=== PATIENT | male | born 1940 | race Caucasian/White ===

== ENCOUNTER 2016-10-19 13:41 | Observation (INO) | payer MEDICARE, OTHER ==
[~2016-10-19] VITALS: Ht 182.9 cm; Wt 102.0 kg
[2016-10-19] VITALS (7 sets, daily range): BP systolic 116–143; BP diastolic 64–80; PULSE 62–76; RESP 4–20; O2SAT 97–100
[~2016-10-19 13:41] MED LIST: ASPI81TA3 PO; CYAN10008 PO; GABA300C PO; HYDR-4150 PO; INSU100I13 SUBQ; NYST1POW23 MC; POLY17PO6 PO; QUET25TA73 PO; SITA100T12 PO; SULF1TAB35 PO; TAMS0.4C98 PO; TIOT4MIS2 IH; TRAM50TA2 PO
--- NOTE | 2016-10-19 14:45 | ED.REPORT ---
HPI-Neurologic Deficit Date of Service Oct 19, 2016 ED Provider: Dale Acevedo MD Pt is a 76 y/o male w/ a hx of TIA, diabetes, HTN, hyperlipidemia, prev squamous cell carcinoma s/p radiation and resection, PVD, COPD, presenting to the ED via EMS due to stroke-like symptoms onset 04:30 this morning. After discussion with the daughter and granddaughter, the patient woke up at 04:30 this morning complaining of facial numbness and was checked by his daughter and he told her that he "didn't feel right" and was fatigued. She checked on him again at 08:30 and noticed he was complaining of left facial numbness. His granddaughter checked on him later at 12:00 and noticed left sided weakness, left facial droop, and slurred speech. 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 He also states that his left hand numbness is related to diabetic peripheral neuropathy. He denies any weakness at all, any pain. Nursing Notes Stated Complaint: LEFT SIDED WEAKNESS Chief Complaint: Neuro Symptoms/ Deficits Nursing Notes Reviewed: Yes Allergies: Coded Allergies: Penicillins (Verified Allergy, Severe, BLISTERS, 10/19/16) TAKES CEPHALEXIN X MANY DOSES silver nitrate (Verified Allergy, Severe, blisters, 10/19/16) tazobactam (Verified Allergy, Severe, BLISTERS, 10/19/16) clindamycin (Verified Allergy, Intermediate, flushed, rash, 10/19/16) vancomycin (Verified Allergy, Intermediate, Rash, flushed, 10/19/16) diphenhydramine (Verified Adverse Reaction, Mild, "he's totally mean", 10/19/16) Uncoded Allergies: BETALACTAMASEIN (Allergy, Severe, BLISTERS, 07/13/09) Scheduled Aspirin Chew (Aspirin Chew) 81 Mg Tab.chew 162 MG PO DAILY Cyanocobalamin (Vitamin B-12) (Vitamin B-12) 1,000 Mcg Tablet 1,000 MCG PO DAILY Gabapentin (Neurontin) 300 Mg Capsule 300 MG PO TID Insulin Glargine (Lantus U100 Solostar Insulin Pen) 100 Unit/1 Ml Insuln.pen 23 UNIT SUBQ BID Nystatin (Nystatin) 1 Each Powder.ea. 1 EACH MC BID Quetiapine Fumarate (Quetiapine Fumarate) 25 Mg Tablet 25 MG PO BID Sitagliptin Phos (Januvia) 100 Mg Tablet 100 MG PO DAILY Sulfamethoxazole/Trimeth 800-160 mg (Bactrim DS 800-160 mg) 1 Each Tablet 1 TABLET PO BID Tamsulosin (Flomax) 0.4 Mg Capsule 0.4 MG PO DAILY Tiotropium [place] (Spiriva Respimat) 4 Gm Mist.inhal 4 GM IH DAILY Scheduled PRN Hydrocodone/Acetaminophen ([place] 5-325 Tablet) 1 Each Tablet 0.5-1 EACH PO q24 hours PRN PRN For Pain Polyethylene Glycol 3350 (Miralax) 17 Gm/Pkt Powd.pack 17 GM PO DAILY PRN PRN For Constipation Tramadol (Tramadol) 50 Mg Tablet 50 MG PO Q4H PRN PRN For Pain General Time Seen by Provider: 14:46 Chief Complaint Other (left-sided deficits) Hx Obtained From: Patient, EMS Arrived By: Ambulance Sudden in Onset?: No Onset Occurred: 5 - 8 hours ago Symptom Duration: Since onset Severity: Current: No pain currently Severity: Maximum: No pain Similar Sx Previous: Yes Risk Factors TPA Administration/Criteria Stroke Thrombolytic Therapy : TPA Considered: Yes TPA Administered Intravenously: No, exclusion criteria NIH Stroke Scale Level of Consciousness: Alert and responsive (0) Ask Month & Age: 1 question right (1) (year incorrect) Open/Close Eyes/Hand Warehouse Record Clerk: Performs both tasks (0) Horizontal EO Movements: None (0) Visual Holcomb: Partial hemianopsia (1) (left eye) Facial Palsy: Minor paralysis (1) Right Arm Motor Drift (10s): No drift 10 sec (0) Left Arm Motor Drift (10s): No drift 10 sec (0) Right Leg Motor Drift (5s): Untestable (0) (bilat bka) Left Leg Motor Drift (5s): Untestable (0) (bilat bka) Limb Ataxia FNF/Heel-Philippe: Ataxia in 1 limb (1) (L arm, difficult to test) Sensation (Arms/Legs/Face): No sensory loss (0) Language Aphasia: No aphasia, normal (0) Dysarthria: No dysarthria, normal (0) Extinction/Inattention: No exctinct/inattent (0) NIHSS Score: 4 Time NIHSS Performed: 16:30 Past Medical History Past Medical History Notes: PCP: Dr. Kirkland Last admit 12/2014 UTI Past Medical History 1. 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 2. Chronic low back pain requiring bilateral L4-L5 facet injections and status post right C3 transforaminal injection for cervical pain. 3. History of remote closed head injury. 4. Hypertension. 5. Peripheral vascular disease. 6. Asthma/COPD 7. 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 TIA in 1999 9. Hyperlipidemia 10. 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 Depression 12. 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 Right hip surgery in 1998 2. Appendectomy 3. Tonsillectomy 4. Umbilical hernia repair 5. 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 Status post ORIF of left elbow. 6. Squamos cell carcinoma resection Family History Reviewed, not relevant Smoking History Former Smoker, Never Smoker Social History Alcohol Use: Denies alcohol use Drug Use: Denies drug use Other Social History: Good social support, Local resident Ambulatory Status Wheelchair Review of Systems Constitutional: Reports: Fatigue, Weakness - generalized Cardiovascular: Denies: Chest pain GI: Denies: Abdominal pain Neurologic: Reports: Focal weakness, Numbness, Slurred speech, Denies: Headache Complete sys rev & neg: except as marked. Physical Exam Initial Vital Signs Vital Signs (First) Date Time Temp Pulse Resp B/P Pulse Ox O2 Delivery O2 Flow Rate FiO2 10/19/16 13:55 36.5 66 14 129/70 97 Room Air 10/19/16 17:25 2 Initial VS: Reviewed, Vital signs normal ENT: Mucous membranes moist, Conjunctiva normal, No scleral icterus Abdomen / GI: Soft, Non-tender Skin: Warm, Dry, No cyanosis Psychiatric: Mood/affect normal, Behavior normal, Normal thought content General/Constitutional: Awake, Alert, No acute distress, Cooperative, Not toxic appearing Head / Eyes: Atraumatic, Normocephalic, PERRL, EOMI Respiratory / Chest: Atraumatic, No respiratory distress, No retractions, No stridor, No chest tenderness, No chest wall deformity, No crepitus Wheezing throughout Good air movement Cardiovascular: Heart rate NL, Regular rhythm, Heart sounds NL, No gallop, No murmurs, No rubs, Cap refill not delayed, Peripheral circulation NL Neurologic: Oriented X3, Speech NL, No sensory deficits See NIH stroke scale Neck: Atraumatic, Supple, No meningismus, Full range of motion, No carotid bruit Interpretation & Diagnostics Lab Results Interpretation Result Diagram: 10/19/16 1538 10/19/16 1538 Test 10/19/16 15:38 10/19/16 16:21 White Blood Count 5.3th/mm3 (3.8-10.1) Red Blood Count 4.44mil/mm3 (4.40-5.80) Hemoglobin 13.9g/dL (13.8-17.2) Hematocrit 41.4% (41.0-50.0) Mean Corpuscular Volume 93.2fL (81-100) Mean Corpuscular Hemoglobin 31.3pg (27.0-35.0) Mean Corpuscular Hemoglobin Concent 33.6% (32.0-37.0) Red Cell Distribution Width 13.4% (12.3-15.4) Platelet Count 119bil/L (150-400) Neutrophils (%) (Auto) 28.1% (40-74) Lymphocytes (%) (Auto) 47.9% (14-46) Monocytes (%) (Auto) 15.2% (4-12) Eosinophils (%) (Auto) 7.8% (0-5) Basophils (%) (Auto) 0.8% (0-3) Prothrombin Time 10.5sec (8.1-12.5) Prothromb Time International Ratio 0.98ratio Activated Partial Thromboplast Time 29.9sec (22.8-33.0) Sodium Level 140mEq/L (134-144) Potassium Level 4.2mEq/L (3.5-5.2) Chloride Level 105mEq/L (97-108) Carbon Dioxide Level 23mmol/L (18-29) Blood Urea Nitrogen 12mg/dL (8-27) Creatinine 0.63mg/dL (0.76-1.27) Estimat Glomerular Filtration Rate 132mL/min (>59) Glucose Level 82mg/dL (60-99) Calcium Level 8.7mg/dL (8.5-10.1) Total Bilirubin 0.4mg/dL (0.0-1.2) Aspartate Amino Transf (AST/SGOT) 21U/L (0-50) Alanine Aminotransferase (ALT/SGPT) 17U/L (0-44) Alkaline Phosphatase 107U/L (25-160) Troponin T < 0.010ug/L (0.0-0.011) Total Protein 6.9g/dL (6.4-8.4) Albumin 3.7g/dL (3.4-5.0) Urine Color Yellow (YELLOW) Urine Appearance Clear (CLEAR,HAZY) Urine pH 6.5 (5.0-8.0) Urine Specific [place] 1.015 (1.003-1.035) Urine Protein Negativemg/dL (NEG,TRACE) Urine Glucose (UA) Negativemg/dL (NEGATIVE) Urine Ketones Negativemg/dL (NEGATIVE) Urine Occult Blood Negative (NEGATIVE) Urine Nitrite Negative (NEGATIVE) Urine Bilirubin Negative (NEGATIVE) Urine Urobilinogen Normalmg/dL (NORMAL) Urine Leukocyte Esterase Negative (NEGATIVE) Urine RBC 0-2/hpf (0-2) Urine WBC 0-5/hpf (0-5) Urine Epithelial Cells Moderate/hpf (NONE-MOD) Urine Crystals None seen (NONE SEEN) Urine Bacteria Moderate/hpf (NONE-FEW) Urine Hyaline Casts None/lpf (NONE) Urine Granular Casts None seen (NONE SEEN) Urine Waxy Casts None seen (NONE SEEN) Urine Red Blood Cell Casts None seen (NONE SEEN) Urine White Blood Cell Casts None seen (NONE SEEN) Urine Mucus None seen (None Seen) Urine Trichomonas None seen (NONE SEEN) Urine Yeast None (NONE SEEN) Urinalysis Comment None Urine Culture Reflexed Indicated ECG Interpretation ECG Interpretation: Sinus rhythm rate 63 LAD Abnormal R wave progression Time: 15:38 Interpreted by: ED physician Normal ECG Interpretation: No acute ischemic changes X-Ray Chest Interpretation Chest Xray Interpretation: IMPRESSION: No acute disease Dictated by: Ag Dickerson M.D. on 10/19/2016 at 18:52 Approved by: Ag Dickerson M.D. on 10/19/2016 at 18:53 Interpretation / Wet Read by: Interpret - Radiologist CT Head Interpretation IMPRESSION: No acute intracranial disease process. Dictated by: Soledad Sharma MD, PhD on 10/19/2016 at 15:11 Approved by: Soledad Sharma MD, PhD on 10/19/2016 at 15:14 Study: Head CT no contrast Interpretation / Wet Read by: Interpret - Radiologist Re-Eval/Medical Decision Med Decision/Clinical Course Presented outside the window for TPA. TPA not further considered. New L facial droop, appears to be acute stroke. No bleeding on CT, otherwise stable, will admit to hospitalist Source of Hx: Old records, EMS, Family Re-Evaluation/Progress : Time of Eval: 16:25 Re-Evaluation/Progress Note: Pt rechecked. NIH stroke scale performed. No change in condition at this time. Discussed case with family who is now in the room. Informed pt of need for admission. Pt understands and agrees with plan for admission. All questions addressed. Consultation : Referral / Consult Name: Ben Patrick MD Consulted With: Hospitalist Call Returned at: 18:24 Executive Chef Assistant: Agrees with eval, Agrees with plan, Accepts admit Note: Spoke with Dr. Patrick, hospitalist, regarding pt's case. Dr. Patrick agrees with the evaluation and agrees to admit the pt. Counseled Regarding: Diagnosis, Lab results, Need for admission Discharge & Departure Impression: Primary Impression: CVA (cerebral vascular accident) CVA mechanism: unspecified Qualified Code: I63.9 - Cerebral infarction, unspecified Disposition: ADMITTED TO HOSPITAL Discharge Condition All VS Reviewed: Yes Condition: Stable Referrals: Johan Kirkland (PCP) Reinier Attestation Portions of this note were transcribed by Jorge Reis. Dr. Kristina Park personally performed the history, physical exam and medical decision-making; I reviewed and confirmed the accuracy of the information in the transcribed note. Signed by Reinier Reveles, 10/19/16 - 4141 Portions of this note were transcribed by Belkys Reyes I, Dr. Slack personally performed the history, physical exam and medical decision-making; I reviewed and confirmed the accuracy of the information in the transcribed note. Signed by: Reinier Rocha, 10/19/16 and 19:16. copies to: Johan Kirkland Donald L MD Oct 19, 2016 14:45 JORGE REIS Oct 19, 2016 14:52 BELKYS REYES Oct 19, 2016 18:30
--- NOTE | 2016-10-19 15:16 | DRSVH ---
PROCEDURE: CT BRAIN WITHOUT CONTRAST ([id number]) INDICATIONS: Stroke, left-sided weakness. TECHNIQUE: Noncontrast 4.5 mm thick angled axial sections acquired from the foramen magnum to the vertex, with c oronal reformats. COMPARISON: [facility], CT, BRAIN W/O CONTRAST, 01/07/2015, 23:39. [facility], CT, BRAIN W/O CONTRAST, 08/21/2013, 12:03. [facility], CR, WRIST COMP MIN 3VW (LT), 08/07/2013, 21:32. [facility], CT, BRAIN W/O CONTRAST, 08/07/2013, 18:56. [facility], CT, BRAIN W/O CONTRAST, 04/10/2013, 2:22. [facility], CT, BRAIN W/O CONTRAST, 02/12/2013, 10:44. FINDINGS: Image quality: Excellent. CSF spaces: Basal cisterns are patent. No extra-axial fluid collections. The ventricles are symmet silvestre in size and shape. Brain: No intracranial bleeds or masses. There is cerebral volume loss for age, with resultant vent ricular and sulcal prominence. There are severe periventricular and deep white matter chronic small vessel ischemic changes. There is intracranial internal carotid artery and vertebral artery atherosc lerosis. Skull and face: Calvarium and visualized facial bones appear intact, without suspicious lesions. Sinuses: Mucosal thickening is noted in the ethmoid air cells bilaterally. The mastoids are clear. IMPRESSION: No acute intracranial disease process. Dictated by: Soledad Sharma MD, PhD on 10/19/2016 at 15:11 Approved by: Soledad Sharma MD, PhD on 10/19/2016 at 15:14
[2016-10-19 15:42] LABS: BASOPHILS % (AUTO) 0.8 % (0-3); EOSINOPHILS % (AUTO) 7.8 % (0-5); MONOCYTES % (AUTO) 15.2 % (4-12); Mean Corpuscular Hemoglobin 31.3 pg (27.0-35.0); Mean Corpuscular Volume 93.2 fL (81-100); NEUTROPHILS % (AUTO) 28.1 % (40-74); Platelet Count 119 bil/L (150-400)
[2016-10-19 15:48] LABS: INR 0.98 ratio
[2016-10-19 16:10] LABS: TROPONIN T < 0.010 ug/L (0.0-0.011)
[2016-10-19] MEDS ORDERED: Albuterol-Ipratropium 3 mL Inhalation Solution NEB ONE (16:40)
[2016-10-19 16:41] LABS: APPEARANCE,URINE CLEAR (CLEAR,HAZY); COLOR,URINE YELLOW (YELLOW)
[2016-10-19 16:42] LABS: OCCULT BLOOD,URINE NEGATIVE (NEGATIVE); PH,URINE 6.5 (5.0-8.0); UROBILINOGEN,URINE NORMAL (NORMAL)
[2016-10-19] MEDS ORDERED: HYDROcodone-APAP 5-325 mg Tablet PO ONE (18:15)
--- NOTE | 2016-10-19 18:53 | DRSVH ---
PROCEDURE: X-RAY CHEST ONE VIEW, PORTABLE ([id number]) INDICATIONS: dyspnea TECHNIQUE: One view of the chest was acquired. COMPARISON: [facility], CR, XR CHEST 1VW (PORTABLE), 05/09/2015, 9:34. FINDINGS: Surgical changes and devices: None. Lungs and pleura: No pleural effusions or pneumothorax. Lungs are clear. Mediastinum: Mediastinal contours appear normal. Heart size is normal. Bones and chest wall: No suspicious bony lesions. Overlying soft tissues appear unremarkable. IMPRESSION: No acute disease Dictated by: Ag Dickerson M.D. on 10/19/2016 at 18:52 Approved by: Ag Dickerson M.D. on 10/19/2016 at 18:53
--- NOTE | 2016-10-19 20:47 | PCM.HPMED ---
Subjective Date of Service Oct 19, 2016 Primary Provider: Admitting Physician: Ben Patrick MD Primary Care Physician: Johan Kirkland Attending Physician: Ben Patrick MD Chief Complaint: Left facial droop since 4 AM HISTORY was OBTAINED FROM PATIENT / MEDITECH NOTES History of present illness 76-year-old male, left facial NUMBNESS since 4 AM, ongoing left facial droop/slurred speech since 12pm per family. Pt w/ chronic upper extremity weakness s/p cortisone injections right shoulder. he is a poor historian, repeats that right forearm has chronic weakness and general ized upper extremity contractracture/weakness attributed to carpel tunnel and DM. no change in strength per patient. right handed. numbness of face has occurred previously intermittently though the slurred speech appears to be reason for concern by family. Review of Systems - none of the following - F/C/sick contact / wt change/ URRUTIA / lightheaded / dizziness / sob / cough / cp / acid reflux / n/v/diarrhea / bleeding/bruising / leg swelling / change in voiding / rash ambulates Dysphagia, dizziness, heartburn had a URI 1 month ago w/ resolved productive coughing at this time FAMILY HX DM SOCIAL HX SECOND HAND SMOKE MEDICATIONS Aspirin Chew (Aspirin Chew) 81 Mg Tab.chew 162 MG PO DAILY Cyanocobalamin (Vitamin B-12) (Vitamin B-12) 1,000 Mcg Tablet 1,000 MCG PO DAILY Gabapentin (Neurontin) 300 Mg Capsule 300 MG PO TID Insulin Glargine (Lantus U100 Solostar Insulin Pen) 100 Unit/1 Ml Insuln.pen 23 UNIT SUBQ BID Nystatin (Nystatin) 1 Each Powder.ea. 1 EACH MC BID Quetiapine Fumarate (Quetiapine Fumarate) 25 Mg Tablet 25 MG PO BID Sitagliptin Phos (Januvia) 100 Mg Tablet 100 MG PO DAILY Sulfamethoxazole/Trimeth 800-160 mg (Bactrim DS 800-160 mg) 1 Each Tablet 1 TABLET PO BID Tamsulosin (Flomax) 0.4 Mg Capsule 0.4 MG PO DAILY Tiotropium [place] (Spiriva Respimat) 4 Gm Mist.inhal 4 GM IH DAILY Scheduled PRN Hydrocodone/Acetaminophen ([place] 5-325 Tablet) 1 Each Tablet 0.5-1 EACH PO q24 hours PRN PRN For Pain Polyethylene Glycol 3350 (Miralax) 17 Gm/Pkt Powd.pack 17 GM PO DAILY PRN PRN For Constipation Tramadol (Tramadol) 50 Mg Tablet 50 MG PO Q4H PRN PRN For Pain Past Medical/Surgical HX 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 2. Chronic low back pain requiring bilateral L4-L5 facet injections and status post right C3 transforaminal injection for cervical pain. 3. History of remote closed head injury. 4. Hypertension. 5. Peripheral vascular disease. 6. Asthma/COPD 7. Prior history of osteomyelitis with MRSA of right lower extremity 8. TIA in 1999 9. Hyperlipidemia 10. 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 Depression/suicide attempt uti/PROSTATITIS nocturia Hiatal hernia Surgical History 1. Right hip surgery in 1998 2. Appendectomy 3. Tonsillectomy 4. Umbilical hernia repair 5. 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 Status post ORIF of left elbow. Allergies Coded Allergies: Penicillins (Verified Allergy, Severe, BLISTERS, 10/19/16) TAKES CEPHALEXIN X MANY DOSES silver nitrate (Verified Allergy, Severe, blisters, 10/19/16) tazobactam (Verified Allergy, Severe, BLISTERS, 10/19/16) clindamycin (Verified Allergy, Intermediate, flushed, rash, 10/19/16) vancomycin (Verified Allergy, Intermediate, Rash, flushed, 10/19/16) diphenhydramine (Verified Adverse Reaction, Mild, "he's totally mean", 10/19/16) Uncoded Allergies: BETALACTAMASEIN (Allergy, Severe, BLISTERS, 07/13/09) PMH Social History Hx Alcohol Use: No Hx Substance Use: No Hx Tobacco Use: Yes (on and off for 1 year, which was 25 years ago) Smoking Status: Never Smoker Exam Vital Signs Vital Sign - Last Date Time Temp Pulse Resp B/P Pulse Ox O2 Delivery O2 Flow Rate FiO2 10/19/16 19:03 36.5 76 17 116/64 99 Nasal Cannula 2 Lab and Diagnostics Labs Exam on admission 2l O2 NAD A and O x 3 mood affect WNL NC/AT no icterus no injected eyes EOMI PERRL /no pharyngeal lesions/ no oral lesions / hearing intact Supple neck left crackles greater than right crackles, equal chest rise / no accessory muscle use / speaks in full sentences / no rrw RRR S1 S2 / no mrg / 2+ radial pulses Soft nt nd + BS no hepatosplenomegaly No edema no cyanosis no ecchymosis of lower extremities No rash / no jaundice LINK, bilateral amputee fingers w/ contractures bilateral Left worse than right CNII-XII grossly intact Strength grossly intact of bilateral upper and lower limbs Sensation grossly symmetrical of bilateral upper and lower limbs asymmetrical facies w/ left side of face s/p surgical treatment EKG SR63 no ST changes Trop 0.01 BNP pending INR 0.98 UA negative leukocyte Estrace negative nitrite negative yeast LFT normal Imaging PROCEDURE: CT BRAIN WITHOUT CONTRAST ([id number]) INDICATIONS: Stroke, left-sided weakness. TECHNIQUE: Noncontrast 4.5 mm thick angled axial sections acquired from the foramen magnum to the vertex, with coronal reformats. COMPARISON: [facility], CT, BRAIN W/O CONTRAST, 01/07/2015, 23:39. [facility], CT, BRAIN W/O CONTRAST, 08/21/2013, 12:03. [facility], CR, WRIST COMP MIN 3VW (LT), 08/07/2013, 21:32. [facility], CT, BRAIN W/O CONTRAST, 08/07/2013, 18:56. [facility], CT, BRAIN W/O CONTRAST, 04/10/2013, 2:22. [facility], CT, BRAIN W/O CONTRAST, 02/12/2013, 10:44. FINDINGS: Image quality: Excellent. CSF spaces: Basal cisterns are patent. No extra-axial fluid collections. The ventricles are symmetric in size and shape. Brain: No intracranial bleeds or masses. There is cerebral volume loss for age , with resultant ventricular and sulcal prominence. There are severe periventricular and deep white matter chronic small vessel ischemic changes. There is intracranial internal carotid artery and vertebral artery atherosclerosis. Skull and face: Calvarium and visualized facial bones appear intact, without suspicious lesions. Sinuses: Mucosal thickening is noted in the ethmoid air cells bilaterally. The mastoids are clear. IMPRESSION: No acute intracranial disease process. ECHO - Interpretation Summary 2014 The left ventricle is normal in size. There is normal left ventricular wall thickness. The ejection fraction is estimated to be 60-65%. The right ventricle is normal in size and function. There is mild mitral annular calcification. There is trace mitral regurgitation. The aortic valve is trileaflet. The aortic valve is slightly calcified. There is trace aortic regurgitation. No clear evidence of valvular vegetation. There is moderate biatrial enlargement. The ascending aorta is mildly enlarged. The aortic arch is at the upper limits of normal in size. Comparison with the study on 04/13/2013 is difficult due to limited images on the March study. Compared to the study on 08/11/2012, no significant change is seen. PROCEDURE: X-RAY CHEST ONE VIEW, PORTABLE ([id number]) INDICATIONS: dyspnea TECHNIQUE: One view of the chest was acquired. COMPARISON: [facility], CR, XR CHEST 1VW (PORTABLE), 05/09/2015, 9: 34. FINDINGS: Surgical changes and devices: None. Lungs and pleura: No pleural effusions or pneumothorax. Lungs are clear. Mediastinum: Mediastinal contours appear normal. Heart size is normal. Bones and chest wall: No suspicious bony lesions. Overlying soft tissues appear unremarkable. IMPRESSION: No acute disease Result Diagram: 10/19/16 1538 10/19/16 1538 Assessment & Plan Active issues and reason for admission New transient slurred speech, prior TIA, treating as TIA currently. 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 Chronic low back pain requiring bilateral L4-L5 facet injections and status post right C3 transforaminal injection for cervical pain. History of remote closed head injury. Hypertension. Peripheral vascular disease. 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 pending CNS DVT prophylaxis lovenox Code full Disposition OBS status Assessment and plan were discussed with patient Ben Patrick MD Oct 19, 2016 20:47
[2016-10-19] MEDS: Insulin GLARgine 100 Unit/mL Syringe SUBQ SCH (21:00)
[2016-10-19] MEDS ORDERED: 0.9% Sodium Chloride 500 ML IV SCH (22:39)
[2016-10-19] MEDS ORDERED: Alum-Mag Hydrox-Simeth 30 mL Suspension PO PRN (22:40)
[2016-10-19] MEDS ORDERED: Labetalol 5 mg/mL 4 mL Inj IVPUSH PRN (22:40)
[2016-10-19] MEDS ORDERED: hydrALAZINE 20 mg/mL Inj IVPUSH PRN (22:40)
[2016-10-19] MEDS ORDERED: Ondansetron 2 mg/mL 2 mL Inj IV PRN (22:40)
--- NOTE | 2016-10-19 22:58 | NUR ---
Admit Pt arrived on unit #[id number] from ED via stretcher with all personal belongings at apprx 2000. Able to transfer self to bed. VSS. Slight facial droop, word searching/slurring. Equal editorial director, WNL. Bilat BKA. 2L NC. Home medication list not completed as pt is poor historian. Fax sent to [facility] pharmacy. Allergy sticker placed on armband. Oriented to unit, call light and hospital policy. Bed locked, low position. Call light within reach, using appropriately. Pleasant and cooperative with care.
[2016-10-19 23:01] LABS: APPEARANCE,URINE HAZY (CLEAR,HAZY); COLOR,URINE DARK YELLOW (YELLOW); OCCULT BLOOD,URINE NEGATIVE (NEGATIVE); UROBILINOGEN,URINE NORMAL (NORMAL)
[2016-10-19 23:02] LABS: ICTOTEST,URINE POSITIVE (Negative)
[2016-10-19 23:49] LABS: TROPONIN T 0.01 ug/L (0.0-0.011)
[2016-10-20] VITALS (10 sets, daily range): BP systolic 105–132; BP diastolic 67–72; PULSE 62–97; RESP 16–18; O2SAT 94–97
[2016-10-20] MEDS ORDERED: Polyethylene Glycol (PEG) 17 Gm Powder PO PRN (00:55)
[2016-10-20] MEDS ORDERED: Glucose 40% Oral Gel 15 Gm Tube PO PRN (00:55)
--- NOTE | 2016-10-20 06:06 | NUR ---
PAIN Pt complained of bilateral pain in hands /10. Administered 1) [place], effective. Pt resting with eyes closed. Neuro's: slight left sided facial droop, word searching, slightly slurred speech. Call light within reach. Will continue to monitor.
[2016-10-20 06:23] LABS: Mean Corpuscular Hemoglobin 30.9 pg (27.0-35.0); Mean Corpuscular Volume 94.3 fL (81-100)
[2016-10-20 06:38] LABS: TROPONIN T 0.01 ug/L (0.0-0.011)
[2016-10-20] MEDS: Insulin LISPRO 300 Unit/3 mL Inj SUBQ SCH ×4 (07:50→22:00)
--- NOTE | 2016-10-20 09:05 | DRSVH ---
PROCEDURE: US BILATERAL DUPLEX DOPPLER IMAGING OF THE CAROTIDS ([id number]) INDICATIONS: Evaluate stroke follow up TECHNIQUE: Color and pulse Doppler interrogation was performed of both carotid systems, with image documentation and velocity measurements. COMPARISON: None. FINDINGS: All stenosis calculations are based on NASCET criteria. Right side: Brachial blood pressure: 143/71 mm Hg. Common Carotid Artery(Distal) PSV: 98.70 cm/s Internal Carotid Artery PSV- Proximal: 92.50 cm/s Mid-lon.30 cm/s Distal: 76.80 cm/s EDV - Proximal: 21.90 cm/s Mid-lon.60 cm/s Distal: 24.70 cm/s External Carotid Artery(Proximal) PSV: 105.60 cm/s ICA/CCA PSV ratio: 0.9 Estrada scale imaging description: Minimal plaque. Percent internal carotid artery stenosis: Less than 50%. Vertebral artery: Flow direction is antegrade. Left side: Brachial blood pressure: 138/80 mm Hg. Common Carotid Artery(Distal) PSV: 85.70 cm/s Internal Carotid Artery PSV - Proximal: 91.20 cm/s Mid-lon.80 cm/s Distal: 63.10 cm/s EDV - Proximal: 26.10 cm/s Mid-lon.10 cm/s Distal: 22.60 cm/s External Carotid Artery(Proximal) PSV: 76.80 cm/s ICA/CCA PSV ratio: 0.9 Estrada scale imaging description: Minimal plaque. Percent internal carotid artery stenosis: Less than 50%. Vertebral artery: Flow direction is antegrade. IMPRESSION: Less than 50% bilateral internal carotid artery stenosis. Dictated by: [facility] Interpreted: Soledad Sharma MD on 10/20/2016 at 9:04 Transcribed by: ESTEPHANIE on 10/20/2016 at 9:05 Approved by: Soledad Sharma MD, PhD on 10/20/2016 at 16:45
[2016-10-20] MEDS ORDERED: ASPI-973 PO (09:26)
--- NOTE | 2016-10-20 09:40 | NUR ---
Pt taken to MRI via bed, student RN with pt. N c/o pain, VSS, no s/sx of distress.
--- NOTE | 2016-10-20 10:30 | NUR ---
NUTRITION ASSESSMENT: ASSESS: Pt is a 76yo M admitted for CVA. Pt has slurred speech and L side facial droop. He is NPO until ST eval. RN noted that pt had trouble swallowing applesauce last night. 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 Crisis Worker .64, Ca 8.4, Alb 3.7 MEDS: Reviewed. GI: 0 BM yet SKIN: Yariel 17 CURRENT WTS: 101.8kg, BMI 30.4kg/m2, IBW 80.9kg DIET: NPO EST. NEEDS: BMI Kcals: 2240-2545kcal/day (20-22kcal/kg) Pro: 95-120g/day (1.2-1.5g/kg IBW) NUTRITION DIAGNOSIS: 1.) Chew/swallow difficulty related possible CVA as evidence by pt with reported slurred speech and L side facial droop and need for ST eval. NUTRITION INTERVENTION: 1.) Diet advance per ST, will monitor for PO intake/tolerance MONITOR / EVAL: NPO, ST, diet, PO, wt, GI, POC, nutrition status. Will continue to monitor per high nutrition risk guidelines
--- NOTE | 2016-10-20 11:06 | PCM.PNMED ---
Subjective Date of Service Oct 20, 2016 Subjective Pt is a 76 y/o male w/ a hx of TIA, diabetes, HTN, hyperlipidemia, prev squamous cell carcinoma s/p radiation and resection, PVD, COPD, presenting to the ED via EMS due to stroke-like symptoms onset 04:30 this morning. After discussion with the daughter and granddaughter, the patient woke up at 04:30 this morning complaining of facial numbness and was checked by his daughter and he told her that he "didn't feel right" and was fatigued. She checked on him again at 08:30 and noticed he was complaining of left facial numbness. His granddaughter checked on him later at 12:00 and noticed left sided weakness, left facial droop, and slurred speech. 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 He also states that his left hand numbness is related to diabetic peripheral neuropathy. He denies any weakness at all, any pain. Alexys slept well overnight, no complaints this morning. Reports he feels much better and would like to go home. Report he currently lives in a motel in [facility]. Exam Vital Signs Vital Sign - Last Date Time Temp Pulse Resp B/P Pulse Ox O2 Delivery O2 Flow Rate FiO2 10/20/16 04:59 62 10/20/16 04:37 36.4 18 132/72 97 Room Air 10/19/16 19:03 2 Intake and Output 10/19/16 10/19/16 10/20/16 Cumulative From/Thru 15:00 23:00 07:00 10/19/16 13:55 - 10/20/16 06:31 Intake Total 500 ml 500 ml Output Total 200 ml 200 ml Balance 300 ml 300 ml Intake Oral 0 ml 0 ml IV Total 500 ml 500 ml Output Urine Total 200 ml 200 ml # Bowel Movements 0 0 Exam Gen: Well developed male in NAD, somewhat poor hygiene HEENT: PERRLA, EOMI, Oropharynx nonerythematous Neck: Soft, NT, no jvp noted CV: RRR, with soft systolic murmur Resp: CTAB, no m/r/c, normal effort Abd; Soft, NT, ND MSK: Bilateral BKA, Muscle strength grossly intact and equal. Bilateral arthritic hand changes Neuro: A&Ox3, CN2-12 grossly intact, face symmetric Skin: warm, dry, intact, no rash noted Psych; appropriate mood and affect, conversive IVs and Medications Medications Reviewed: Medications were reviewed in detail Lab and Diagnostics Result Diagram: 10/20/16 0510/19/16 1538 Assessment & Plan 76 y/o male w/ a hx of TIA, diabetes, HTN, hyperlipidemia, prev squamous cell carcinoma s/p radiation and resection, PVD, COPD, and b/l BKA presenting to the ED via EMS due to stroke-like symptoms onset 04:30 10/19/16. Admitted for CVA vs TIA workup. Slurred Speech, POA - Resolved Transient slurred speech per granddaughter on admission in a patient with prior TIA suspicious for new TIA. Echocardiogram, Carotid U/s, brain MRI pending LEATHER FITTER/PT/OT evaluation pending Permissive HTN was allowed, but patient's blood pressures have been stable. 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 Chronic low back pain requiring bilateral L4-L5 facet injections and status post right C3 transforaminal injection for cervical pain. Chronic Hypertension. Peripheral vascular disease. 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 pending LEATHER FITTER DVT prophylaxis lovenox Code full Disposition OBS status Pain Evaluation: Adequate Pain Control Resuscitation Status: CPR: Attempt Resuscitation Time spent 30 minutes Attending Statement I have seen and evaluated patient at bedside, in addition to directly supervising care provided by resident physician. I agree with above documentation. Though SNF DC would be preferable based on PT evaluation, pt is of preference to go home in spite of this recommendation. Declining further assistance if stroke can be ruled out. Rohan Camejo DO Oct 20, 2016 06:49 Nishant Boothe DO Oct 20, 2016 15:09
--- NOTE | 2016-10-20 12:13 | NUR ---
Evaluation completed. Please go to "Notes" then click on "Assessments and Notes" (bottom left corner of screen). Then select appropriate discipline tab on top of screen.
--- NOTE | 2016-10-20 13:32 | NUR ---
Evaluation completed. Please go to "Notes" then click on "Assessments and Notes" (bottom left corner of screen). Then select appropriate discipline tab on top of screen.
--- NOTE | 2016-10-20 13:44 | DRSVH ---
PROCEDURE: MRI BRAIN WITHOUT CONTRAST ([id number]) INDICATIONS: left facial droop, slurred speech TECHNIQUE: Non-contrast axial T1 spin echo, axial T2 fast spin echo, sagittal and axial FLAIR, coronal T2 fast s pin echo, axial gradient echo, axial diffusion and ADC through the brain. COMPARISON: [facility], CT, BRAIN W/O CONTRAST, 08/21/2013, 12:03. [facility], CT, BRAIN W/O CONTRAST, 01/07/2015, 23:39. [facility], CT, CT BRAIN WO CON, 10/19/2016 , 15:02. FINDINGS: Image quality: Limited by patient motion artifact CSF spaces: Diffuse prominence of CSF spaces noted. Basal cisterns are patent. Small, parafalcine, an terior frontal arachnoid cyst are noted. Brain: No intracranial bleeds or mass effects. There is cerebral volume loss for age. There are se raquel pontine, subinsular, periventricular and deep white matter chronic small vessel ischemic changes . Brainstem appears normal. Diffusion-weighted images show no acute ischemic insults. Old, small, r ight thalamic lacunar infarct is noted. Old, small, chronic lacunar infarct noted in the right centru m semi-ovale. Normal intravascular flow voids are present. Skull and face: Calvarial bone marrow is normal in signal. Orbits are normal. Sinuses: Mucosal thickening is noted in the maxillary sinuses bilaterally, the sphenoid sinuses bilat erally, the ethmoid air cells bilaterally and the frontal sinuses bilaterally. The mastoids are clear . IMPRESSION: 1. No acute intracranial disease process. 2. No areas of acute infarction. 3. Old, small, chronic lacunar infarcts involving the right thalamus and the right centrum semi-ovale . 4. Moderate, diffuse volume loss. 5. Severe chronic microvascular white matter ischemic changes. 6. Pansinusitis. Dictated by: Soledad Sharma MD, PhD on 10/20/2016 at 13:36 Approved by: Soledad Sharma MD, PhD on 10/20/2016 at 13:42
[2016-10-20] MEDS: Tiotropium 18mcg/Cap 5 Capsule Inhaler Kit INHALATION SCH (14:46)
--- NOTE | 2016-10-20 16:02 | NUR ---
took over care at 3pm
--- NOTE | 2016-10-20 18:05 | NUR ---
Patient Anxious/Agitated P: Per patient's daughter, patient tried removing gown, threw blanket on floor, and was asking for his prosthetic legs. Stated he was anxious to leave, causing him to be agitated. Daughter stated he threw incentive spirometer across room. When entering room, patient had calmed down, but was still stating he wanted to go home. His daughter was reminding him he needed to wait for the dr to discharge him before leaving. I: Assisted patient back into gown and blankets. Patient was cooperative with care. E: Upon reassessment of patient, found him to be calm and at ease.
--- NOTE | 2016-10-20 18:29 | NUR ---
BEHAVIOR Pt care plan on board: MRI test, ECHO, PT/OT Evals, Speech Therapy eval > all to assess and determine further care and rule out CVA. Pt expressed desire to go home, lives in hotel. Report from Student RN, pt became agitated and anxious. Threw Incentive spirometer across room, mostly disrobed, attempting to get prosthetics and leave. Reported that daughter calmed pt down. Upon immediate assessment, pt appeared to have calmed down - continued to express desire to go home, some impulsive behavior with arm movements. Stated "I have to go home to pay the rent, its due tomorrow." Echo called about availability, not possible today. MD informed, called back to update plan of care. Pt informed of plan, put on board, understands the need to stay. Planning on speaking with family to take care of rent arrangements. Pt at ease, willing to comply with care.
[2016-10-20] MEDS: Insulin GLARgine 100 Unit/mL Syringe SUBQ SCH (22:18)
[2016-10-21 02:00] VITALS: BP 114/72; PULSE 76; RESP 16; O2SAT 97
--- NOTE | 2016-10-21 03:45 | NUR ---
Nutrition & sleep: Pt asks for multiple snacks. Pt continues to ask for drinks despite nectar thick diet and pt teaching. patient slept through the night.
[2016-10-21 05:25] VITALS: BP 122/84; PULSE 64; RESP 16; O2SAT 98
[2016-10-21 06:03] VITALS: PULSE 86
[2016-10-21] MEDS: Tiotropium 18mcg/Cap 5 Capsule Inhaler Kit INHALATION SCH (07:51)
[2016-10-21] MEDS: Insulin LISPRO 300 Unit/3 mL Inj SUBQ SCH ×2 (07:53→12:00)
[2016-10-21 09:11] VITALS: BP 124/72; PULSE 72; RESP 18; O2SAT 96
--- NOTE | 2016-10-21 09:26 | NUR ---
Social Work: Initial Assessment Data: Pt is a 76 y/o male admitted for acute CVA. Pt's PCP is Dr Kirkland, pt's insurance is Medicare with [email or web address]. EMR reviewed. PT recommending SNF at this time, ST recommending ST after d/c. CROWN AND BRIDGE TECHNICIAN met with pt at bedside role explained. Pt states he lives in a Motel in [place] and his daughter assists him as he needs, but that he is independent in his wheel chair or walker. Pt has both legs amputated below the knee. Pt states that he has no stairs, does not drive, has no hx of HH or SNF, no LTC or VA benefits, and is not a caregiver. CROWN AND BRIDGE TECHNICIAN explained the recommendation for SNF, and explained that this would be private pay. Pt declines stating even if it was covered he was going to go home. Pt agreeable to HH. Pt states he in independent with transfers and is confident that he can take care of himself at home with assistance form his daughter. CROWN AND BRIDGE TECHNICIAN gave HH choice list, pt states that he has no preference. Rotating calendar referred to, Cristin BAXTER referred. CROWN AND BRIDGE TECHNICIAN left a message with Brody and gave access, F2F in CROWN AND BRIDGE TECHNICIAN folder to be signed by . CROWN AND BRIDGE TECHNICIAN will continue to follow. Assessment: Pt who is independent at baseline. Plan: Pt will d/c back to [facility] with Cristin BAXTER RN/PT/. CROWN AND BRIDGE TECHNICIAN will continue to follow. RUI Bolton Addendum: 10/21/16 at 0930 by GUMARO ARRIAGA Amended: Links added.
--- NOTE | 2016-10-21 10:04 | NUR ---
Social Work: Readiness for d/c Data: Pt is on day 2 of hospitalization. EMR reviewed. Pt discussed in rounds. MD states pt likely to d/c today. CHEMICAL ENGRAVER spoke with PT who saw pt this morning and states he his back or close to his baseline, per daughter. CHEMICAL ENGRAVER will continue to follow. Assessment: Pt who is independent at baseline. Plan: Pt will d/c back to hotel with Cristin BAXTER RN/PT/ST. CHEMICAL ENGRAVER will continue to follow. RUI Bolton
--- NOTE | 2016-10-21 10:26 | NUR ---
Social Work: Discharge Data: Pt is on day 2 of hospitalization. EMR reviewed. Pt discussed in rounds, d/c orders are in. HOSPITALITY COORDINATOR called Cristin BAXTER, spoke with Damian Bowles, F2F faxed, access previously given. Pt's daughter is in the room with him ready to transport home. No further d/c planning needs anticipated at this time. HOSPITALITY COORDINATOR will continue to follow if needs arise. Assessment: Pt who is independent at baseline. Plan: Pt will d/c home via POV with daughter with Cristin BAXTER, RN/PT/ST. No further d/c planning needs anticipated at this time. HOSPITALITY COORDINATOR will continue to follow if needs arise. RUI Bolton
[2016-10-21 10:27] VITALS: PULSE 75
[2016-10-21] MEDS ORDERED: ATOR40TA69 PO (10:35)
[2016-10-21] MEDS ORDERED: TIOT18CA3 INHALATION (10:35)
--- NOTE | 2016-10-21 10:37 | PCM.DIMED ---
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 Chronic low back pain requiring bilateral L4-L5 facet injections and status post right C3 transforaminal injection for cervical pain. Chronic Hypertension. Peripheral vascular disease. Asthma/COPD Hyperlipidemia Depression/suicide attempt uti/PROSTATITIS nocturia Hiatal hernia Bilateral BKA - with prosthesis Medication Instructions Aspirin Chew (Aspirin Chew) 81 Mg Tab.chew 162 MG PO DAILY Cyanocobalamin (Vitamin B-12) (Vitamin B-12) 1,000 Mcg Tablet 1,000 MCG PO DAILY Gabapentin (Neurontin) 300 Mg Capsule 300 MG PO TID Insulin Glargine (Lantus U100 Solostar Insulin Pen) 100 Unit/1 Ml Insuln.pen 23 UNIT SUBQ BID Nystatin (Nystatin) 1 Each Powder.ea. 1 EACH MC BID Quetiapine Fumarate (Quetiapine Fumarate) 25 Mg Tablet 25 MG PO BID Sitagliptin Phos (Januvia) 100 Mg Tablet 100 MG PO DAILY Sulfamethoxazole/Trimeth 800-160 mg (Bactrim DS 800-160 mg) 1 Each Tablet 1 TABLET PO BID Tamsulosin (Flomax) 0.4 Mg Capsule 0.4 MG PO DAILY Tiotropium [place] (Spiriva Respimat) 4 Gm Mist.inhal 4 GM IH DAILY Scheduled PRN Hydrocodone/Acetaminophen (Fertile 5-325 Tablet) 1 Each Tablet 0.5-1 EACH PO q24 hours PRN PRN For Pain Polyethylene Glycol 3350 (Miralax) 17 Gm/Pkt Powd.pack 17 GM PO DAILY PRN PRN For Constipation Tramadol (Tramadol) 50 Mg Tablet 50 MG PO Q4H PRN PRN For Pain Test Results CBC Test 10/19/16 15:38 10/20/16 05:12 Neutrophils (%) (Auto) 28.1% (40-74) Lymphocytes (%) (Auto) 47.9% (14-46) Monocytes (%) (Auto) 15.2% (4-12) Eosinophils (%) (Auto) 7.8% (0-5) Basophils (%) (Auto) 0.8% (0-3) White Blood Count 5.2th/mm3 (3.8-10.1) Red Blood Count 4.37mil/mm3 (4.40-5.80) Hemoglobin 13.5g/dL (13.8-17.2) Hematocrit 41.2% (41.0-50.0) Mean Corpuscular Volume 94.3fL (81-100) Mean Corpuscular Hemoglobin 30.9pg (27.0-35.0) Mean Corpuscular Hemoglobin Concent 32.8% (32.0-37.0) Red Cell Distribution Width 13.5% (12.3-15.4) Platelet Count 117bil/L (150-400) CMP Test 10/19/16 15:38 10/19/16 22:57 10/20/16 05:12 Total Bilirubin 0.4mg/dL Aspartate Amino Transf (AST/SGOT) 21U/L Alanine Aminotransferase (ALT/SGPT) 17U/L Alkaline Phosphatase 107U/L Total Protein 6.9g/dL Albumin 3.7g/dL Pro-B-Type Natriuretic Peptide 13.58pg/mL Triglycerides Level 89mg/dL Cholesterol Level 116mg/dL LDL Cholesterol, Calculated 59.200mg/dL VLDL Cholesterol 17.800mg/dL HDL Cholesterol 39mg/dL Cholesterol/HDL Ratio 2.97 Sodium Level 142mEq/L Potassium Level 3.9mEq/L Chloride Level 105mEq/L Carbon Dioxide Level 25mmol/L Blood Urea Nitrogen 12mg/dL Creatinine 0.64mg/dL Estimat Glomerular Filtration Rate 130mL/min Glucose Level 85mg/dL Hemoglobin A1c 5.8% Calcium Level 8.4mg/dL Troponin T 0.010ug/L Diet No restrictions Activity Home Health Phyical Therapy Call your provider Fever or Chills, Shortness of breath, Chest pain, Vomitting Patient Instructions Follow-up Provider: Johan Kirkland Follow-up with PCP in: 1 week Briseyda Montano MD Oct 21, 2016 10:30
--- NOTE | 2016-10-21 10:48 | PCM.DC.MED ---
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 Chronic low back pain requiring bilateral L4-L5 facet injections and status post right C3 transforaminal injection for cervical pain. Chronic Hypertension. Peripheral vascular disease. Asthma/COPD Hyperlipidemia Depression/suicide attempt uti/PROSTATITIS nocturia Hiatal hernia Bilateral BKA - with prosthesis Procedures XRay, CTs & MRIs MRI BRAIN WITHOUT CONTRAST ([id number]) INDICATIONS: left facial droop, slurred speech TECHNIQUE: Non-contrast axial T1 spin echo, axial T2 fast spin echo, sagittal and axial FLAIR, coronal T2 fast spin echo, axial gradient echo, axial diffusion and ADC through the brain. COMPARISON: [facility], CT, BRAIN W/O CONTRAST, 08/21/2013, 12:03. [facility], CT, BRAIN W/O CONTRAST, 01/07/2015, 23:39. [facility], CT, CT BRAIN WO CON, 10/19/2016, 15:02. FINDINGS: Image quality: Limited by patient motion artifact CSF spaces: Diffuse prominence of CSF spaces noted. Basal cisterns are patent. Small, parafalcine, anterior frontal arachnoid cyst are noted. Brain: No intracranial bleeds or mass effects. There is cerebral volume loss for age. There are severe pontine, subinsular, periventricular and deep white matter chronic small vessel ischemic changes. Brainstem appears normal. Diffusion-weighted images show no acute ischemic insults. Old, small, right thalamic lacunar infarct is noted. Old, small, chronic lacunar infarct noted in the right centrum semi-ovale. Normal intravascular flow voids are present. Skull and face: Calvarial bone marrow is normal in signal. Orbits are normal. Sinuses: Mucosal thickening is noted in the maxillary sinuses bilaterally, the sphenoid sinuses bilaterally, the ethmoid air cells bilaterally and the frontal sinuses bilaterally. The mastoids are clear. IMPRESSION: 1. No acute intracranial disease process. 2. No areas of acute infarction. 3. Old, small, chronic lacunar infarcts involving the right thalamus and the right centrum semi-ovale. 4. Moderate, diffuse volume loss. 5. Severe chronic microvascular white matter ischemic changes. 6. Pansinusitis. Dictated by: Soledad Sharma MD, PhD on 10/20/2016 at 13:36 Cardiac Echo Impression Echo read is pending. Other Diagnostics US BILATERAL DUPLEX DOPPLER IMAGING OF THE CAROTIDS ([id number]) INDICATIONS: Evaluate stroke follow up TECHNIQUE: Color and pulse Doppler interrogation was performed of both carotid systems, with image documentation and velocity measurements. IMPRESSION: Less than 50% bilateral internal carotid artery stenosis. Dictated by: Keenan Larios RRA Interpreted: Soledad Sharma MD Brief History 76-year-old male, left facial NUMBNESS since 4 AM, ongoing left facial droop/ slurred speech since 12pm per family. Pt w/ chronic upper extremity weakness s/ p cortisone injections right shoulder. he is a poor historian, repeats that right forearm has chronic weakness and general ized upper extremity contractracture/weakness attributed to carpel tunnel and DM. no change in strength per patient. right handed. numbness of face has occurred previously intermittently though the slurred speech appears to be reason for concern by family. 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 Admitted for CVA vs TIA workup. Slurred Speech, POA - Resolved Transient slurred speech per granddaughter on admission in a patient with prior TIA suspicious for new TIA. Echocardiogram pending DRAFTER PATENT/PT/OT evaluation recommended SNF for safety/rehab, which he declined. Permissive HTN was allowed, but patient's blood pressures have been stable. 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 Chronic low back pain requiring bilateral L4-L5 facet injections and status post right C3 transforaminal injection for cervical pain. Chronic Hypertension. Peripheral vascular disease. 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 Noland for a number of years. He looks better today than on many recent interactions in the shelter and other hospitalizations. He clearly recognizes me and interacts at his normal level. Granted, he is a bit off mentally and tangential but that has worked well for him for many years. He does have some degree of dementia, and now lives in a rundown motel, but seems to get by and is declining any more assistance. He will be discharging with home health. His granddaughter is present. She lives nearby and checks on him. He tells me that he is able to use the motel room phone to contact help when he falls or has other needs. He crawls on the floor over to the phone and has a cell phone in addition. I would tend to believe him. On exam heart is regular rate and rhythm today without murmur, lungs are clear to auscultation bilaterally, bilateral below knee amputation stumps appear without edema. Exam Vital Signs (Last) Date Time Temp Pulse Resp B/P Pulse Ox O2 Delivery O2 Flow Rate FiO2 10/21/16 10:27 75 10/21/16 10:02 Room Air 10/21/16 09:11 36.4 18 124/72 96 10/19/16 19:03 2 Test 10/19/16 15:38 10/19/16 16:21 10/19/16 22:45 10/19/16 22:57 Neutrophils (%) (Auto) 28.1% (40-74) Lymphocytes (%) (Auto) 47.9% (14-46) Monocytes (%) (Auto) 15.2% (4-12) Eosinophils (%) (Auto) 7.8% (0-5) Basophils (%) (Auto) 0.8% (0-3) Prothrombin Time 10.5sec (8.1-12.5) Prothromb Time International Ratio 0.98ratio Activated Partial Thromboplast Time 29.9sec (22.8-33.0) Total Bilirubin 0.4mg/dL (0.0-1.2) Aspartate Amino Transf (AST/SGOT) 21U/L (0-50) Alanine Aminotransferase (ALT/SGPT) 17U/L (0-44) Alkaline Phosphatase 107U/L (25-160) Total Protein 6.9g/dL (6.4-8.4) Albumin 3.7g/dL (3.4-5.0) Urinalysis Comment None Urine Color Dark yellow (YELLOW) Urine Appearance Hazy (CLEAR,HAZY) Urine pH 6.0 (5.0-8.0) Urine Specific [place] 1.025 (1.003-1.035) Urine Protein Negativemg/dL (NEG,TRACE) Urine Glucose (UA) Negativemg/dL (NEGATIVE) Urine Ketones 15mg/dL (NEGATIVE) Urine Occult Blood Negative (NEGATIVE) Urine Nitrite Negative (NEGATIVE) Urine Bilirubin Small (NEGATIVE) Urine Ictotest Positive (Negative) Urine Urobilinogen Normalmg/dL (NORMAL) Urine Leukocyte Esterase Negative (NEGATIVE) Urine RBC 0-2/hpf (0-2) Urine WBC 0-5/hpf (0-5) Urine Epithelial Cells Moderate/hpf (NONE-MOD) Urine Crystals None seen (NONE SEEN) Urine Bacteria Many/hpf (NONE-FEW) Urine Hyaline Casts None/lpf (NONE) Urine Granular Casts None seen (NONE SEEN) Urine Waxy Casts None seen (NONE SEEN) Urine Red Blood Cell Casts None seen (NONE SEEN) Urine White Blood Cell Casts None seen (NONE SEEN) Urine Mucus None seen (None Seen) Urine Trichomonas None seen (NONE SEEN) Urine Yeast None (NONE SEEN) Urine Culture Reflexed Indicated Pro-B-Type Natriuretic Peptide 13.58pg/mL (0-486) Triglycerides Level 89mg/dL (0-149) Cholesterol Level 116mg/dL (100-199) LDL Cholesterol, Calculated 59.200mg/dL (0-99) VLDL Cholesterol 17.800mg/dL HDL Cholesterol 39mg/dL (>39) Cholesterol/HDL Ratio 2.97 (0.0-4.4) Test 10/20/16 05:12 White Blood Count 5.2th/mm3 (3.8-10.1) Red Blood Count 4.37mil/mm3 (4.40-5.80) Hemoglobin 13.5g/dL (13.8-17.2) Hematocrit 41.2% (41.0-50.0) Mean Corpuscular Volume 94.3fL (81-100) Mean Corpuscular Hemoglobin 30.9pg (27.0-35.0) Mean Corpuscular Hemoglobin Concent 32.8% (32.0-37.0) Red Cell Distribution Width 13.5% (12.3-15.4) Platelet Count 117bil/L (150-400) Sodium Level 142mEq/L (134-144) Potassium Level 3.9mEq/L (3.5-5.2) Chloride Level 105mEq/L (97-108) Carbon Dioxide Level 25mmol/L (18-29) Blood Urea Nitrogen 12mg/dL (8-27) Creatinine 0.64mg/dL (0.76-1.27) Estimat Glomerular Filtration Rate 130mL/min (>59) Glucose Level 85mg/dL (60-99) Hemoglobin A1c 5.8% (4.8-5.6) Calcium Level 8.4mg/dL (8.5-10.1) Troponin T 0.010ug/L (0.0-0.011) Discharge Medications Discharge Medications Aspirin (Aspirin) 81 Mg Tablet 81 MG PO DAILY (Reported) Atorvastatin Calcium (Atorvastatin Calcium) 40 Mg Tablet 40 MG PO HS Prescribed by: HENRI MONTANO MD Cyanocobalamin (Vitamin B-12) (Vitamin B-12) 1,000 Mcg Tablet 1,000 MCG PO DAILY (Reported) Gabapentin (Neurontin) 300 Mg Capsule 300 MG PO TID Prescribed by: EMILY SEGOVIA MD Insulin Glargine (Lantus U100 Solostar Insulin Pen) 100 Unit/1 Ml Insuln.pen 45 UNIT SUBQ HS (Reported) Quetiapine Fumarate (Quetiapine Fumarate) 25 Mg Tablet 25 MG PO BID (Reported) Sitagliptin Phos (Januvia) 100 Mg Tablet 100 MG PO DAILY (Reported) Tamsulosin (Flomax) 0.4 Mg Capsule 0.4 MG PO DAILY Prescribed by: EMILY SEGOVIA MD Tiotropium [place] (Spiriva) 18 Mcg Cap.w.dev 18 MCG INHALATION DAILY Prescribed by: HENRI MONTANO MD Additional med instructions Aspirin Chew (Aspirin Chew) 81 Mg Tab.chew 162 MG PO DAILY Cyanocobalamin (Vitamin B-12) (Vitamin B-12) 1,000 Mcg Tablet 1,000 MCG PO DAILY Gabapentin (Neurontin) 300 Mg Capsule 300 MG PO TID Insulin Glargine (Lantus U100 Solostar Insulin Pen) 100 Unit/1 Ml Insuln.pen 23 UNIT SUBQ BID Nystatin (Nystatin) 1 Each Powder.ea. 1 EACH MC BID Quetiapine Fumarate (Quetiapine Fumarate) 25 Mg Tablet 25 MG PO BID Sitagliptin Phos (Januvia) 100 Mg Tablet 100 MG PO DAILY Sulfamethoxazole/Trimeth 800-160 mg (Bactrim DS 800-160 mg) 1 Each Tablet 1 TABLET PO BID Tamsulosin (Flomax) 0.4 Mg Capsule 0.4 MG PO DAILY Tiotropium [place] (Spiriva Respimat) 4 Gm Mist.inhal 4 GM IH DAILY Scheduled PRN Hydrocodone/Acetaminophen ([place] 5-325 Tablet) 1 Each Tablet 0.5-1 EACH PO q24 hours PRN PRN For Pain Polyethylene Glycol 3350 (Miralax) 17 Gm/Pkt Powd.pack 17 GM PO DAILY PRN PRN For Constipation Tramadol (Tramadol) 50 Mg Tablet 50 MG PO Q4H PRN PRN For Pain Followup Plan Discharge Diet: No restrictions Discharge Activity: Home Health Phyical Therapy Follow-up Provider: Johan Kirkland Follow-up with PCP in: 1 week Briseyda Montano MD Oct 21, 2016 10:46
--- NOTE | 2016-10-21 15:30 | NUR ---
DISCHARGE Pt taken curbside via at 1530. Daughter picking up and taking home. Discharge paperwork, care notes, prescriptions reviewed and signed by pt. IV DCd intact, tele removed, VSS, no s/sx of distress, all belongings with pt.
--- NOTE | 2016-10-21 20:22 | DRSVH ---
[facility] [address] [address] Echocardiogram Report Name: EKTA MONTOYA RStudy Date: 10/21/2016 Height: 72 in Hospital Exam Location: [facility] Weight: 224 lb Gender: Male BSA: 2.2 m2 : 1940 Age: 76 yrs BP: 122/84 mmHg Reason For Study: STROKE Ordering Physician: Performed By: Carmen Simon Referring Physician: JENN Interpretation Summary Normal sinus rhythm. Normal LV size; mild concentric LVH; normal wall motion where seen. EF is 55- 60%. There are no significant valvular abnormalities. No source of embolism identified. No evidence of PFO based on color flow Doppler. Compared to prior study 08/23/2013, no changes have occurred. Procedure: A two-dimensional transthoracic echocardiogram with color flow and Doppler was performed. The study quality was technically difficult. A contrast injection of Definity was performed to improve assessment of LV function. A total of 5 cc of contrast was given. Comparison is made with the echocardiogram of 08-23-2013. The patient was in normal sinus rhythm during the exam. Left Ventricle: The left ventricle is normal in size. Left ventricular wall thickness is mildly increased. The ejection fraction is estimated to be 55- 60%. Spectral Doppler of the mitral valve is reversed, with an E/A wave ratio < 1.0. Right Ventricle: The right ventricle is normal size. Atria: Both atria are normal in size. There is no Doppler evidence for an atrial septal defect. Mitral Valve: The mitral valve leaflets appear normal. There is no evidence of stenosis, fluttering, or prolapse. There is trace mitral regurgitation. Aortic Valve: The aortic valve is trileaflet. The aortic valve opens well. The aortic valve is slightly calcified. There is trace aortic regurgitation. Tricuspid Valve: The tricuspid valve leaflets are thin and pliable. No tricuspid regurgitation. Pulmonic Valve: The pulmonic valve is not well visualized. There is no pulmonic valvular regurgitation. Great Vessels: The aortic root is mildly dilated. The ascending aorta could not be visualized. The pulmonary artery is not well visualized, but is probably normal size. The IVC is of normal diameter and collapses greater than 50% with a sniff. This suggests a low right atrial pressure of 3 mm Hg. Pericardium/ Pleura There is no pericardial effusion. There is no pleural effusion. MMode/2D Measurements & Calculations LVIDd: 5.2 cm LA dimension: 4.2 cm RA long axis LVOT diam: 2.3 cm LVIDs: 3.4 cm AoV Opening FS: 35.0 % LA A2 area: 20.3 cm RA area IVSd: 1.2 cm LA A4 area: 19.7 cm Ao root diam LVPWd: 1.3 cm LA length (vol) : 20.5 cm RA vol Ao Arch Diam (Prox LA vol: 50.1 ml : 57.9 ml Trans): 2.9 cm LA vol index RA : 25.9 mm2 : 22.4 ml/m2 LV anderson. diameter/BSA LV sys. diameter/BSA RVD2 (mid) (cm/m^2): 2.3 (cm/m^2): 1.5 : 3.8 cm Doppler Measurements & Calculations Ao V2 max MV E max leonardo MV E/A: 0.65 PA V2 max : 104.4 cm/sec : 55.7 cm/sec Med Peak E' Leonardo : 81.9 cm/sec Ao max PG MV A max leonardo PA mean PG : 4.4 mmHg : 85.3 cm/sec E/E' med: 10.6 Ao mean PG MV P1/2t: 88.8 msec Lat Peak E' Leonardo PA Accel Time : 0.10 sec LVOT Max Leonardo E/E' lat: 12.8 : 93.2 cm/sec E/e' average: 11.7 Pulm A Revs Dur JIGAR(I,D): 3.7 cm sev ratio MV A dur: 0.16 sec MV dec time MV P1/2t max leonardo Ao V2 mean LV V1 max PG : 0.30 sec : 84.6 cm/sec MVA(P1/2t): 2.5 cm2 Ao V2 VTI: 26.3 cm LV V1 VTI JIGAR(V,D): 3.8 cm2 : 22.7 cm PA V2 mean JIGAR indexed to BSA Pulm A Revs Dur - MV A : 65.2 cm/sec (cm^2/m^2): 1.7 Dur: 0.01 msec Reading Physician:08:22 PM
== END 2016-10-21 15:23 | disposition home health service (06) ==
LOC: EDBD 13:41 → SED 13:41 → INTOOBSV 18:30 → MPC 18:30
PROVIDERS: ADMIT Urology; ATTEND Urology
DX: R47.81 Slurred speech (principal); R29.810 Facial weakness; E11.42 Type 2 diabetes mellitus with diabetic polyneuropathy; I10 Essential (primary) hypertension; I73.9 Peripheral vascular disease, unspecified; J44.9 Chronic obstructive pulmonary disease, unspecified; J45.909 Unspecified asthma, uncomplicated; G89.29 Other chronic pain; M54.5 Low back pain; E78.5 Hyperlipidemia, unspecified; F32.9 Major depressive disorder, single episode, unspecified; Z86.72 Personal history of thrombophlebitis; Z79.4 Long term (current) use of insulin; Z85.89 Personal history of malignant neoplasm of other organs and systems; Z89.512 Acquired absence of left leg below knee; Z89.511 Acquired absence of right leg below knee; Z86.14 Personal history of Methicillin resistant Staphylococcus aureus infection; Z92.3 Personal history of irradiation; N41.9 Inflammatory disease of prostate, unspecified; R35.1 Nocturia; Z86.73 Personal history of transient ischemic attack (TIA), and cerebral infarction without residual deficits; Z87.440 Personal history of urinary (tract) infections
CPT/HCPCS: 36415; 70450; 70551; 71010; 80048; 80053; 80061; 81000; 82948; 83036; 83880; 84484; 85025; 85027; 85610; 85730; 87086; 87088; 92610; 93005; 93880; 94640; 94664; 97162; 97165; 97530; 99285; C8929; G0378; G8978; G8979; G8996; G8997; J1815; J7030; J7620; Q9957

== ENCOUNTER 2016-11-09 16:12 | Emergency (ER) | payer MEDICARE, OTHER ==
[~2016-11-09] VITALS: Ht 188 cm; Wt 109.5 kg
[~2016-11-09 16:12] MED LIST changes: +ASPI-973 PO; -ASPI81TA3 PO; +ATOR40TA69 PO; -HYDR-4150 PO; -NYST1POW23 MC; -POLY17PO6 PO; -SULF1TAB35 PO; +TIOT18CA3 INHALATION; -TIOT4MIS2 IH; -TRAM50TA2 PO
[2016-11-09 16:18] VITALS: BP 114/63; PULSE 77; RESP 20; O2SAT 97
[2016-11-09 17:19] LABS: BASOPHILS % (AUTO) 0.3 % (0-3); EOSINOPHILS % (AUTO) 3.8 % (0-5); MONOCYTES % (AUTO) 10.6 % (4-12); Mean Corpuscular Volume 91.3 fL (81-100); NEUTROPHILS % (AUTO) 53.7 % (40-74); Platelet Count 151 bil/L (150-400)
--- NOTE | 2016-11-09 18:00 | ED.REPORT ---
HPI-Extremity Problem Lower Date of Service Nov 09, 2016 ED Provider: Perry Pritchard DO A 76 year old male with a history of diabetes and bilateral BKA presents to the ED complaining of left knee redness and pain. The pt has been experiencing these symptoms for several days. He was recently seen at another hospital and had the left knee drained after being diagnosed with bursitis. The pt was placed on Keflex, but the redness and pain have continued. The pt uses prosthesis, which has been rubbing his knee. He was recently admitted and discharged on 10/21/2016. Nursing Notes Stated Complaint: LEFT KNEE INFLAMED Chief Complaint: Extremity Trauma Nursing Notes Reviewed: Yes Allergies: Coded Allergies: Penicillins (Verified Allergy, Severe, BLISTERS, 10/19/16) TAKES CEPHALEXIN X MANY DOSES silver nitrate (Verified Allergy, Severe, blisters, 10/19/16) tazobactam (Verified Allergy, Severe, BLISTERS, 10/19/16) clindamycin (Verified Allergy, Intermediate, flushed, rash, 10/19/16) vancomycin (Verified Allergy, Intermediate, Rash, flushed, 10/19/16) diphenhydramine (Verified Adverse Reaction, Mild, "he's totally mean", 10/19/16) Uncoded Allergies: BETALACTAMASEIN (Allergy, Severe, BLISTERS, 07/13/09) Scheduled Aspirin (Aspirin) 81 Mg Tablet 81 MG PO DAILY Atorvastatin Calcium (Atorvastatin Calcium) 40 Mg Tablet 40 MG PO HS Cyanocobalamin (Vitamin B-12) (Vitamin B-12) 1,000 Mcg Tablet 1,000 MCG PO DAILY Gabapentin (Neurontin) 300 Mg Capsule 300 MG PO TID Insulin Glargine (Lantus U100 Solostar Insulin Pen) 100 Unit/1 Ml Insuln.pen 45 UNIT SUBQ HS Quetiapine Fumarate (Quetiapine Fumarate) 25 Mg Tablet 25 MG PO BID Sitagliptin Phos (Januvia) 100 Mg Tablet 100 MG PO DAILY Tamsulosin (Flomax) 0.4 Mg Capsule 0.4 MG PO DAILY Tiotropium [place] (Spiriva) 18 Mcg Cap.w.dev 18 MCG INHALATION DAILY General Time Seen by MD: 18:00 Chief Complaint Other (Left knee pain) Hx Obtained From: Patient Arrived By: Walk-in Symptom Duration: Since onset Recent Healthcare: Recent doctor visit, Recent hospitalization Similar Sx Previous: Yes Past Medical History Past Medical History Notes: PCP: Dr. Kirkland Last admit 12/2014 UTI Past Medical History 1. Cet-zcnpgfd-btezjjsga type 2 diabetes with associated peripheral neuropathy. 2. Chronic low back pain requiring bilateral L4-L5 facet injections and status post right C3 transforaminal injection for cervical pain. 3. History of remote closed head injury. 4. Hypertension. 5. Peripheral vascular disease. 6. Asthma/COPD 7. 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 TIA in 1999 9. Hyperlipidemia 10. 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 Depression 12. 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 Right hip surgery in 1998 2. Appendectomy 3. Tonsillectomy 4. Umbilical hernia repair 5. 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 Status post ORIF of left elbow. 6. Squamos cell carcinoma resection Family History Reviewed, not relevant Smoking History Never Smoker Social History Alcohol Use: Denies alcohol use Drug Use: Denies drug use Other Social History: Good social support, Local resident Ambulatory Status Wheelchair Review of Systems Review of Systems Note: left knee redness and swelling Constitutional: Denies: Fever Skin: Denies Rash Complete sys rev & neg: except as marked. Respiratory: Denies: Non-productive cough Cardiovascular: Denies: Chest pain GI: Denies: Abdominal pain Physical Exam Initial Vital Signs Vital Signs (First) Date Time Temp Pulse Resp B/P Pulse Ox O2 Delivery O2 Flow Rate FiO2 11/09/16 16:18 36.3 77 20 114/63 97 Room Air Initial VS: Reviewed Lower Extremity / Pelvis / MS: Full range of motion left BKA with well healing stump erythema and swelling around patella and proximal tibia small amount of bursa fluid full range of motion of knee joint no sign of septic arthritis bilateral BKA General/Constitutional: Awake, Alert no facial droop Respiratory / Chest: Atraumatic, Breath sounds NL, Breath sounds = bilat, No respiratory distress Cardiovascular: Heart rate NL, Regular rhythm, Heart sounds NL Skin: Atraumatic, No rash, Warm, Dry Neurologic: Oriented X3, Speech NL, No motor deficits, No sensory deficits Head / Eyes: Atraumatic, Normocephalic, PERRL, EOMI ENT: Atraumatic, Airway patent, Mucous membranes moist Neck: Atraumatic, Supple, Full range of motion Abdomen: Atraumatic, Soft, Non-tender Back: Atraumatic, Full range of motion Upper Extremity / MS: Atraumatic, Full range of motion Psychiatric: Affect NL, Mood NL Interpretation & Diagnostics Lab Results Interpretation Result Diagram: 11/09/16 1706 11/09/16 1706 Test 11/09/16 17:06 White Blood Count 6.5th/mm3 (3.8-10.1) Red Blood Count 4.35mil/mm3 (4.40-5.80) Hemoglobin 13.5g/dL (13.8-17.2) Hematocrit 39.7% (41.0-50.0) Mean Corpuscular Volume 91.3fL (81-100) Mean Corpuscular Hemoglobin 31.0pg (27.0-35.0) Mean Corpuscular Hemoglobin Concent 34.0% (32.0-37.0) Red Cell Distribution Width 12.7% (12.3-15.4) Platelet Count 151bil/L (150-400) Neutrophils (%) (Auto) 53.7% (40-74) Lymphocytes (%) (Auto) 31.4% (14-46) Monocytes (%) (Auto) 10.6% (4-12) Eosinophils (%) (Auto) 3.8% (0-5) Basophils (%) (Auto) 0.3% (0-3) Sodium Level 137mEq/L (134-144) Potassium Level 4.0mEq/L (3.5-5.2) Chloride Level 101mEq/L (97-108) Carbon Dioxide Level 24mmol/L (18-29) Blood Urea Nitrogen 17mg/dL (8-27) Creatinine 0.75mg/dL (0.76-1.27) Estimat Glomerular Filtration Rate 108mL/min (>59) Glucose Level 267mg/dL (60-99) Lactic Acid Level 2.0mmol/L (0.4-2.0) Calcium Level 8.3mg/dL (8.5-10.1) Total Bilirubin 0.2mg/dL (0.0-1.2) Aspartate Amino Transf (AST/SGOT) 15U/L (0-50) Alanine Aminotransferase (ALT/SGPT) 12U/L (0-44) Alkaline Phosphatase 115U/L (25-160) Total Protein 6.4g/dL (6.4-8.4) Albumin 3.5g/dL (3.4-5.0) Pulse Oximetry Interpretation Pulse Oximetry Interpretation: 97% on room air Pulse Oximetry: Pulse Ox normal Procedures Procedure Notes: Fine Needle Aspiration: ED physician 20:34 informed consent from patient, time-out performed, hand hygiene observed, sterile stand technique wound preparation: iodine local anesthesia: lidocaine with epi 1% location: right knee result: dry aspirate antibiotic ointment applied, dressing applied, no complications, condition improved, tolerated procedure well, pt stable Re-Eval/Medical Decision Med Decision/Clinical Course 76-year-old male with mild cellulitis and no evidence of septic arthritis or septic bursitis. No fluid in either the bursa or the joint. White count was normal. He is on Keflex. I will add doxycycline for MRSA coverage. Recommend follow-up in 24-48 hours. We outlined the area of erythema and a blue pen. He will have his Dr. take a look at it. Return if the area grows in size Source of Hx: Old records Re-Evaluation/Progress : Time of Eval: 20:34 Patient Status: Condition improved Re-Evaluation/Progress Note: Pt rechecked, who is resting comfortably. Fine needle aspiration is performed. Pt tolerated the procedure well and there were no complications. The plan for discharge is discussed. The pt understands and agrees with the plan. All questions are addressed at this time. Counseled Regarding: Diagnosis, Lab results, Need for follow-up, When/why to return to ED Discharge & Departure Impression: Primary Impression: Cellulitis of right leg Disposition: Home Discharge Condition All VS Reviewed: Yes Condition: Stable Patient Instructions: Cellulitis (ED) Additional Instructions: Take 1-2 Percocet every 6 hours as needed for severe pain. Do not drive, drink alcohol, or consume acetaminophen while taking the Percocet. Take a stool softener to avoid constipation from this medication. Take doxycycline twice daily for 7 days. Finish your Keflex. Follow up with your primary care physician or orthopedics within 24-72 hours for further evaluation. Be seen in follow up sooner if the redness grows in size. Return to the emergency department if you develop any new or worsening symptoms. Referrals: Johan Kirkland (PCP) Addison Cardenas MD Attestation Portions of this note were transcribed by Belkys Reyes. I, Dr. Pritchard personally performed the history, physical exam and medical decision-making; I reviewed and confirmed the accuracy of the information in the transcribed note. Signed by: Reinier Rocha, 11/09/2016 and 2123. copies to: Addison Cardenas MD; Johan Kirkland Todd P DO Nov 09, 2016 18:00 BELKYS REYES Nov 09, 2016 18:32
[2016-11-09] MEDS ORDERED: Lidocaine 1%-Epi 1:100,000 20 mL Inj ONE (18:23)
[2016-11-09] MEDS ORDERED: Lidocaine 1%-Epi 1:100,000 50 mL Inj NERVEBLOCK ONE (18:25)
[2016-11-09] MEDS ORDERED: HYDROcodone-APAP 5-325 mg Tablet PO ONE (18:25)
[2016-11-09] MEDS ORDERED: Doxycycline Inj 100 MG in Dextrose 5% Minibag Plus 100 ML IV ONE (18:25)
[2016-11-09] MEDS ORDERED: cefTRIAXone Inj 2,000 MG in Dextrose 5% Minibag Plus 50 ML IV ONE (18:25)
[2016-11-09] MEDS ORDERED: _oxyCODONE/APAP 5-325 mg Tablet PO PRN (21:00)
[2016-11-09 21:39] VITALS: BP 132/74; PULSE 82; RESP 16; O2SAT 98
[2016-11-10] MEDS ORDERED: Sodium Chloride LOK Flush 10 mL Syringe IVFLUSH SCH (00:30)
== END 2016-11-09 21:40 | disposition home or self-care (01) ==
LOC: SED 16:12
DX: L03.115 Cellulitis of right lower limb (principal); E11.40 Type 2 diabetes mellitus with diabetic neuropathy, unspecified; I10 Essential (primary) hypertension; J45.909 Unspecified asthma, uncomplicated; J44.9 Chronic obstructive pulmonary disease, unspecified; E78.5 Hyperlipidemia, unspecified; Z86.73 Personal history of transient ischemic attack (TIA), and cerebral infarction without residual deficits; Z86.14 Personal history of Methicillin resistant Staphylococcus aureus infection; Z89.511 Acquired absence of right leg below knee; Z89.512 Acquired absence of left leg below knee; Z79.82 Long term (current) use of aspirin; Z79.4 Long term (current) use of insulin; Z88.0 Allergy status to penicillin; Z88.8 Allergy status to other drugs, medicaments and biological substances; Z88.1 Allergy status to other antibiotic agents
CPT/HCPCS: 10021; 36415; 80053; 83605; 85025; 87040; 96365; 96366; 96367; 99284; J0696

== ENCOUNTER 2016-12-02 19:22 | Emergency (ER) | payer MEDICARE, OTHER ==
[2016-12-02 19:23] VITALS: BP 108/57; PULSE 76; RESP 13; O2SAT 100
--- NOTE | 2016-12-02 19:35 | ED.REPORT ---
HPI-General Illness Date of Service Dec 02, 2016 ED Provider: Dale Acevedo MD Pt is a 76 y/o male w/ a hx of TIA, diabetes, HTN, hyperlipidemia, prev squamous cell carcinoma s/p radiation and resection, PVD, and COPD who presents to the ED due to vomiting after eating "pepperoni and tomato" just [employer]. He is no longer vomiting at the ED. Pt denies fever, abdominal pain, diarrhea, and cough. The pt uses bilateral prosthesis. He was recently admitted and discharged on 10/21/2016. Nursing Notes Stated Complaint: NAUSEA/VOMITING Chief Complaint: General Complaint Nursing Notes Reviewed: Yes Allergies: Coded Allergies: Penicillins (Verified Allergy, Severe, BLISTERS, 10/19/16) TAKES CEPHALEXIN X MANY DOSES silver nitrate (Verified Allergy, Severe, blisters, 10/19/16) tazobactam (Verified Allergy, Severe, BLISTERS, 10/19/16) clindamycin (Verified Allergy, Intermediate, flushed, rash, 10/19/16) vancomycin (Verified Allergy, Intermediate, Rash, flushed, 10/19/16) diphenhydramine (Verified Adverse Reaction, Mild, "he's totally mean", 10/19/16) Uncoded Allergies: BETALACTAMASEIN (Allergy, Severe, BLISTERS, 07/13/09) Scheduled Aspirin (Aspirin) 81 Mg Tablet 81 MG PO DAILY Atorvastatin Calcium (Atorvastatin Calcium) 40 Mg Tablet 40 MG PO HS Cyanocobalamin (Vitamin B-12) (Vitamin B-12) 1,000 Mcg Tablet 1,000 MCG PO DAILY Gabapentin (Neurontin) 300 Mg Capsule 300 MG PO TID Insulin Glargine (Lantus U100 Solostar Insulin Pen) 100 Unit/1 Ml Insuln.pen 45 UNIT SUBQ HS Quetiapine Fumarate (Quetiapine Fumarate) 25 Mg Tablet 25 MG PO BID Sitagliptin Phos (Januvia) 100 Mg Tablet 100 MG PO DAILY Tamsulosin (Flomax) 0.4 Mg Capsule 0.4 MG PO DAILY Tiotropium Kirklin (Spiriva) 18 Mcg Cap.w.dev 18 MCG INHALATION DAILY Scheduled PRN Ondansetron ODT (Zofran ODT) 4 Mg Tablet 4 MG PO Q4H PRN PRN For Nausea General Time Seen by MD: 19:32 Chief Complaint Vomiting (d) Hx Obtained From: Patient Arrived By: Walk-in Sudden in Onset?: Yes Onset Occurred: Just prior to arrival Symptom Duration: Since onset Severity: Current: No pain currently Past Medical History Past Medical History Notes: PCP: Dr. Kirkland Last admit 12/2014 UTI Past Medical History 1. 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 2. Chronic low back pain requiring bilateral L4-L5 facet injections and status post right C3 transforaminal injection for cervical pain. 3. History of remote closed head injury. 4. Hypertension. 5. Peripheral vascular disease. 6. Asthma/COPD 7. 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 TIA in 1999 9. Hyperlipidemia 10. 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 Depression 12. 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 Right hip surgery in 1998 2. Appendectomy 3. Tonsillectomy 4. Umbilical hernia repair 5. 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 Status post ORIF of left elbow. 6. Squamos cell carcinoma resection Family History Reviewed, not relevant Smoking History Never Smoker Social History Alcohol Use: Denies alcohol use Drug Use: Denies drug use Other Social History: Good social support, Local resident Ambulatory Status Wheelchair Review of Systems Full Review of Systems Constitutional: Denies: Fever Respiratory: Denies: Non-productive cough GI: Reports: Nausea, Vomiting, Denies: Abdominal pain, Diarrhea Complete sys rev & neg: except as marked. Physical Exam Vital Signs Vital Signs Date Time Temp Pulse Resp B/P Pulse Ox O2 Delivery O2 Flow Rate FiO2 12/02/16 23:24 36.7 88 18 132/58 98 Nasal Cannula 1 12/02/16 21:45 36.7 88 18 132/58 98 Nasal Cannula 1 12/02/16 19:23 36.5 76 13 108/57 100 Nasal Cannula 2 Initial VS: Reviewed Head / Eyes: Atraumatic, Normocephalic, PERRL ENT: Mucous membranes moist, Conjunctiva normal, No scleral icterus Neck: Supple, Non-tender, Full range of motion Respiratory: Breath sounds normal, Clear to auscultation, No respiratory distress Cardiovascular: Regular rate & rhythm, Heart sounds normal, Intact distal pulses Abdomen / GI: Soft, Non-tender, No guarding, No rebound, No distention Extremities: Vascular intact, Neuro intact, No swelling, No tenderness Skin: Warm, Dry, No cyanosis General/Constitutional: Awake, Alert, Cooperative Interpretation & Diagnostics Lab Results Interpretation Result Diagram: 12/02/16192712/02/161927 Test 12/02/16 19:28 12/02/16 22:30 White Blood Count 16.0th/mm3 (3.8-10.1) Red Blood Count 4.69mil/mm3 (4.40-5.80) Hemoglobin 14.6g/dL (13.8-17.2) Hematocrit 42.4% (41.0-50.0) Mean Corpuscular Volume 90.4fL (81-100) Mean Corpuscular Hemoglobin 31.1pg (27.0-35.0) Mean Corpuscular Hemoglobin Concent 34.4% (32.0-37.0) Red Cell Distribution Width 13.1% (12.3-15.4) Platelet Count 153bil/L (150-400) Neutrophils (%) (Auto) 60.2% (40-74) Lymphocytes (%) (Auto) 32.5% (14-46) Monocytes (%) (Auto) 5.3% (4-12) Eosinophils (%) (Auto) 1.5% (0-5) Basophils (%) (Auto) 0.3% (0-3) Hold Purple Top Tube Received (Received) Hold Blue Top Tube Received (Received) Sodium Level 142mEq/L (134-144) Potassium Level 3.2mEq/L (3.5-5.2) Chloride Level 103mEq/L (97-108) Carbon Dioxide Level 23mmol/L (18-29) Blood Urea Nitrogen 18mg/dL (8-27) Creatinine 0.78mg/dL (0.76-1.27) Estimat Glomerular Filtration Rate 103mL/min (>59) Glucose Level 136mg/dL (60-99) Calcium Level 8.9mg/dL (8.5-10.1) Total Bilirubin 0.4mg/dL (0.0-1.2) Aspartate Amino Transf (AST/SGOT) 23U/L (0-50) Alanine Aminotransferase (ALT/SGPT) 17U/L (0-44) Alkaline Phosphatase 134U/L (25-160) Total Protein 7.5g/dL (6.4-8.4) Albumin 4.3g/dL (3.4-5.0) Lipase 35U/L (13-60) Hold Red Top Tube Received (Received) Hold [place] Top Tube Received (Received) Urine Color Yellow (YELLOW) Urine Appearance Clear (CLEAR,HAZY) Urine pH 6.0 (5.0-8.0) Urine Specific [place] 1.025 (1.003-1.035) Urine Protein Negativemg/dL (NEG,TRACE) Urine Glucose (UA) Negativemg/dL (NEGATIVE) Urine Ketones Negativemg/dL (NEGATIVE) Urine Occult Blood Negative (NEGATIVE) Urine Nitrite Negative (NEGATIVE) Urine Bilirubin Negative (NEGATIVE) Urine Urobilinogen Normalmg/dL (NORMAL) Urine Leukocyte Esterase Negative (NEGATIVE) Urine RBC 0-2/hpf (0-2) Urine WBC 0-5/hpf (0-5) Urine Epithelial Cells Occasional/hpf (NONE-MOD) Urine Crystals Amorphous urates (NONE Urine Bacteria Few/hpf (NONE-FEW) Urine Hyaline Casts None/lpf (NONE) Urine Granular Casts None seen (NONE SEEN) Urine Waxy Casts None seen (NONE SEEN) Urine Red Blood Cell Casts None seen (NONE SEEN) Urine White Blood Cell Casts None seen (NONE SEEN) Urine Mucus Present (None Seen) Urine Trichomonas None seen (NONE SEEN) Urine Yeast None (NONE SEEN) Urinalysis Comment None Urine Culture Reflexed Not indicated ECG Interpretation ECG Interpretation: no change from baseline Time: 19:33 Interpreted by: ED physician Normal ECG Interpretation: Normal sinus rhythm (73), No acute ischemic changes X-Ray Chest Interpretation Chest Xray Interpretation: IMPRESSION: No acute cardiopulmonary disease process. Dictated by: Soledad Sharma MD, PhD on 12/02/2016 at 21:13 Approved by: Soledad Sharma MD, PhD on 12/02/2016 at 21:14 View: Portable Interpretation / Wet Read by: Interpret - Radiologist Re-Eval/Medical Decision Time of Eval: 23:00 Patient Status: Condition improved Re-Evaluation/Progress Note: Pt rechecked. He is feeling much better and has no vomitted again. F/U and RTER warnings given. Pt understands and agrees with plan. Counseled Regarding: Diagnosis, Lab results, Need for follow-up, When/why to return to ED Discharge & Departure Primary Impression: Vomiting Vomiting type: unspecified Vomiting Intractability: non-intractable Nausea presence: with nausea Qualified Code: R11.2 - Nausea with vomiting, unspecified Disposition: Home Discharge Condition All VS Reviewed: Yes Condition: Stable Additional Instructions: There were no dangerous causes for your symptoms today. Keep well hydrated and drink plenty of fluids. Continue previous home medications. We wrote a prescription for ondansetron- you can fill this tomorrow if you have more vomiting. Follow up with your primary care physician as needed. Return to the Emergency Department for recurrent vomiting not controlled by ondansetron, abdominal pain, fevers, shortness of breath. . Referrals: Johan Kirkland (PCP) Jimbo Attestation Portion of this note were transcribed by Valentina Waters. I, Dr. Acevedo, personally performed the history, physical exam, and medical decision-making: I reviewed and confirmed the accuracy for the information in the transcribed note. Signed by: jimbo Sloan, 12/02/16 2200 copies to: Johan Kirkland Donald L MD Dec 02, 2016 19:35 Valentina Waters Dec 02, 2016 19:44
[2016-12-02] MEDS ORDERED: Ondansetron 2 mg/mL 2 mL Inj IV PRN (19:40)
[2016-12-02 19:47] LABS: BASOPHILS % (AUTO) 0.3 % (0-3); EOSINOPHILS % (AUTO) 1.5 % (0-5); MONOCYTES % (AUTO) 5.3 % (4-12); Mean Corpuscular Hemoglobin 31.1 pg (27.0-35.0); Mean Corpuscular Volume 90.4 fL (81-100); NEUTROPHILS % (AUTO) 60.2 % (40-74); Platelet Count 153 bil/L (150-400)
--- NOTE | 2016-12-02 21:15 | DRSVH ---
PROCEDURE: X-RAY CHEST ONE VIEW, PORTABLE ([id number]) INDICATIONS: leukocytosis/vomitng TECHNIQUE: One view of the chest was acquired. COMPARISON: [facility], CR, XR CHEST 1VW (PORTABLE), 05/09/2015, 9:34. FINDINGS: Surgical changes and devices: None. Lungs and pleura: No pleural effusions or pneumothorax. Lungs are clear. Mediastinum: Mediastinal contours appear normal. Heart size is normal. Bones and chest wall: No suspicious bony lesions. Overlying soft tissues appear unremarkable. IMPRESSION: No acute cardiopulmonary disease process. Dictated by: Soledad Sharma MD, PhD on 12/02/2016 at 21:13 Approved by: Soledad Sharma MD, PhD on 12/02/2016 at 21:14
[2016-12-02 21:45] VITALS: BP 132/58; PULSE 88; RESP 18; O2SAT 98
[2016-12-02] MEDS ORDERED: 0.9% Sodium Chloride 1,000 ML IV ONE (22:00)
[2016-12-02 22:46] LABS: APPEARANCE,URINE CLEAR (CLEAR,HAZY); COLOR,URINE YELLOW (YELLOW); OCCULT BLOOD,URINE NEGATIVE (NEGATIVE); UROBILINOGEN,URINE NORMAL (NORMAL)
[2016-12-02] MEDS ORDERED: Ondansetron 2 mg/mL 2 mL Inj IVPUSH ONE (23:00)
[2016-12-02] MEDS ORDERED: Potassium Chloride 20 mEq/15 mL 15mL Oral Soln PO ONE (23:00)
[2016-12-02] MEDS ORDERED: ONDA4TAB9 PO (23:01)
[2016-12-02 23:24] VITALS: BP 132/58; PULSE 88; RESP 18; O2SAT 98
== END 2016-12-02 23:24 | disposition home or self-care (01) ==
LOC: SED 19:22
DX: R11.2 Nausea with vomiting, unspecified (principal); E11.9 Type 2 diabetes mellitus without complications; I10 Essential (primary) hypertension; E78.5 Hyperlipidemia, unspecified; J44.9 Chronic obstructive pulmonary disease, unspecified; J45.909 Unspecified asthma, uncomplicated; Z86.14 Personal history of Methicillin resistant Staphylococcus aureus infection; Z86.73 Personal history of transient ischemic attack (TIA), and cerebral infarction without residual deficits; Z79.82 Long term (current) use of aspirin; Z79.4 Long term (current) use of insulin; Z88.1 Allergy status to other antibiotic agents; Z88.8 Allergy status to other drugs, medicaments and biological substances
CPT/HCPCS: 36415; 71010; 80053; 81000; 83690; 85025; 93005; 96361; 96374; 96376; 99285; J2405; J7030; P9612